=== PATIENT | male | born 1985 | race Hispanic/Latino ===

== ENCOUNTER 2020-04-30 18:23 | Emergency (ER) | payer SELFPAY ==
[2020-04-30] MEDS ORDERED: Famotidine 20 MG TAB ONE (18:43)
[2020-04-30] MEDS ORDERED: Dexamethasone 4 MG TAB ONE (18:43)
== END 2020-04-30 19:37 | disposition home or self-care (01) ==
LOC: BURERS 18:23
DX: T65.91XA Toxic effect of unspecified substance, accidental (unintentional), initial encounter (principal); F17.210 Nicotine dependence, cigarettes, uncomplicated
CPT/HCPCS: 99282; J8540